=== PATIENT | female | born 1980 | race Caucasian/White ===

== ENCOUNTER 2016-04-27 16:27 | Inpatient (IN) | payer MEDICAID ==
[~2016-04-27] VITALS: Ht 144.8 cm; Wt 66.2 kg
[~2016-04-27 16:27] MED LIST: IRON325 M2 PO; PREDNISONE; PRENATAL PO
[2016-04-27] MEDS ORDERED: AMOXICILLIN500 MG PO (16:52)
[2016-04-27] MEDS ORDERED: OXYTOCIN 20 UNITS/LR PREMIX 1,000 ML IV SCH (18:36)
[2016-04-27] MEDS ORDERED: MISOPROSTOL 25 MCG TAB VG SCH (18:40)
[2016-04-27] MEDS ORDERED: NALBUPHINE 10 MG/ML AMP IVP PRN (18:40)
[2016-04-27] MEDS ORDERED: MISOPROSTOL 25 MCG TAB ONE (20:19)
[2016-04-27] MEDS ORDERED: LACTATED RINGERS 500 ML IV ONE (20:30)
[2016-04-27] MEDS: LACTATED RINGERS 1,000 ML IV SCH (20:46)
[2016-04-27] MEDS ORDERED: METHYLERGONOVINE 0.2 MG/ML AMP IM PRN (22:05)
[2016-04-28] MEDS ORDERED: OXYTOCIN 20 UNITS/LR PREMIX 1,000 ML IV ONE (03:49)
[2016-04-28] MEDS ORDERED: NALBUPHINE HYDROCHLORIDE 10 MG/ML VIAL ONE (04:34)
[2016-04-28] MEDS: LACTATED RINGERS 1,000 ML IV SCH (05:36)
[2016-04-28] MEDS ORDERED: ROPIVACAINE 0.2%/NS PREMIX 250 ML EPI ONE (05:37)
[2016-04-28] MEDS ORDERED: ROPIVACAINE 0.2%/NS PREMIX 250 ML EPI SCH (06:10)
--- NOTE | 2016-04-28 08:46 | NUR ---
PATIENT HAS BEEN SCREENED AND CATEGORIZED LOW NUTRITION RISK. PATIENT WILL BE SEEN WITHIN 7 DAYS OF ADMISSION. 05/04/[address]
[2016-04-28] MEDS ORDERED: OXYTOCIN 10 UNITS/ML VIAL ONE (09:57)
[2016-04-28] MEDS ORDERED: OXYTOCIN 20 UNITS/LR PREMIX 1,000 ML IV SCH ×2 (10:07→18:36)
[2016-04-28] MEDS ORDERED: oxyCODONE/APAP 5/325 MG 1 TAB TAB PO PRN (10:10)
[2016-04-28] MEDS ORDERED: MEASLES, MUMPS, AND RUBELLA 1 VIAL SQVAC PRN (10:10)
[2016-04-28] MEDS: IBUPROFEN 600 MG TAB PO PRN (18:09)
[2016-04-29] MEDS: IBUPROFEN 600 MG TAB PO PRN (08:36)
[2016-04-30] MEDS ORDERED: TYLENOL325 M2 PO ×2 (14:22→14:24)
== END 2016-04-30 15:00 | disposition home or self-care (01) | DRG 560 ==
LOC: MLD 16:27 → OBSVTOIN 20:15 → MFCC 04-28 13:45
PROVIDERS: ADMIT Obstetrics & Gynecology; ATTEND Obstetrics & Gynecology
PROC: 10E0XZZ Delivery of Products of Conception, External Approach (ICD-10-PCS; principal; 2016-04-27)
PROC: 3E0S3CZ (ICD-10-PCS; 2016-04-27)
PROC: 3E0234Z Introduction of Serum, Toxoid and Vaccine into Muscle, Percutaneous Approach (ICD-10-PCS; 2016-04-28)
DX: O75.89 Other specified complications of labor and delivery (principal); Z37.0 Single live birth; O09.523 Supervision of elderly multigravida, third trimester; Z3A.39 39 weeks gestation of pregnancy
CPT/HCPCS: G0378 ×4